=== PATIENT | male | born 1980 | race Caucasian/White ===

== ENCOUNTER → 2021-08-02 | Outpatient (CLI) | payer BC ==
[~2021-08-02] MED LIST: HYDR1TAB94 PO; Hydrochloroth12.5 MG PO; IBUP800; LOSA50 PO; Norco 5-325 Ta1 EACH PO
== END | disposition home or self-care (01) ==
LOC: LAB SHORT 07:47
DX: L72.0 Epidermal cyst (principal)
CPT/HCPCS: 88304; 88305